=== PATIENT | male | born 1985 | race Caucasian/White ===

== ENCOUNTER 2023-04-28 07:17 | Outpatient (CLI) | payer BC, SELFPAY ==
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
--- OUTSIDE RECORDS SUMMARY | 2023-04-28 07:20 | XMS_ITS | Referral Summary ---
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 Resolved Problems Problem Noted Date Diagnosed Date Resolved Date CARDIOVASCULAR SCREENING; LD L GOAL LESS THAN 160 01/21/2010 04/16/2016 Tobacco use disorder 012 Immunizations Name Administration Dates Next Due HepB 05/16/2000,11/29/1999,10/29/1999 MMR 10/29/1999,05/28/1988 Mantoux Tuberculin Skin Test 03/31/2006 TD,PF 7+ (Tenivac) 10/29/1999 TDAP Vaccine (Boostrix) 09/05/2011 Social History Tobacco Use Types Packs/Day Years Used Date Smoking Tobacco: Former Cigarettes 0.5 1 Smokeless Tobacco: Former Quit: 04/16/2013 Alcohol Use Standard Drinks/Week Comments Yes 3 (1 standard drink = 0.6 oz pur e alcohol) PHQ-2 Answer Date Recorded PHQ-2 Score 0 03/31/2018 Adolescent Education Answer Date Record ed Getting School Help Needed Not on file 12/15 Sex and Gender Information Value Date Recorded Sex Assigned at Not on file Gender Identity Not on file Sexual Orientation Not on file Last Filed Vital Signs Vital Sign Reading Time Taken Comments Blood Pressure 118/72 03/22/2019 4:08 PM NUMERICAL CONTROL DRILL PRESS OPERATOR Pulse 77 03/22/2019 4:08 PM NUMERICAL CONTROL DRILL PRESS OPERATOR Temperature 37.1 ??C (98.8 ??F) 03/22/2019 4:08 PM CS T Respiratory Rate 16 03/22/2019 4:08 PM NUMERICAL CONTROL DRILL PRESS OPERATOR Oxygen Saturation 98% 03/22/2019 4:08 PM NUMERICAL CONTROL DRILL PRESS OPERATOR Inhaled Oxygen Concentration - - Weight 73.5 kg (162 lb) 03/22/2019 4:08 PM NUMERICAL CONTROL DRILL PRESS OPERATOR Height 170.2 cm (5' 7) 03/22/2019 4:08 PM NUMERICAL CONTROL DRILL PRESS OPERATOR Body Mass Index 25.37 03/22/2019 4:08 PM NUMERICAL CONTROL DRILL PRESS OPERATOR Plan of Treatment Not on file
--- OUTSIDE RECORDS SUMMARY | 2023-04-28 07:20 | XMS_ITS | Clinical Summary ---
Author Name Unknown Organization [facility] Address [place], [place] [address] Care Team Providers Care Burglar Alarm Mechanic Name Role Phone Alfred Upton MD Primary Care Provider [phone] Allergies No known active allergies Medications No known medications Social History Tobacco Use Types Packs/Day Years Used Date Smoking Tobacco: Never Assessed Sex and Gender Information Value Date Recorded Sex Assigned at Not on file Gender Identity Not on file Sexual Orientation Not on file Last Filed Vital Signs Vital Sign Reading Time Taken Comments Blood Pressure 119/78 01/29/2018 1:40 PM POWER CLEANER OPERATOR Pulse 78 01/29/2018 1:40 PM POWER CLEANER OPERATOR Temperature 36.5 ??C (97.7 ??F) 01/29/2018 1:40 PM CS T Respiratory Rate 18 01/29/2018 1:40 PM POWER CLEANER OPERATOR Oxygen Saturation 96% 01/29/2018 1:40 PM POWER CLEANER OPERATOR Inhaled Oxygen Concentration - - Weight - - Height - - Body Mass Index - - Plan of Treatment Not on file Care Teams Burglar Alarm Mechanic Relationship Specialty Start Date End Date Alfred Upton MD PCP - General Family Practice 01/29/18
--- OUTSIDE RECORDS SUMMARY | 2023-04-28 07:20 | XMS_ITS | Encounter Summary ---
Author Name Unknown Organization [facility] Address [address] [place] [address] Care Team Providers Care Mechanical Maintenance Name Role Phone Alfred Upton MD Primary Care Provider Akin Chandler MD Primary Care Provider [phone] Maria Victoria Jones RISK CONTROL PRODUCT LIABILITY DIRECTOR Unavailable [phone] Maria Victoria Jones RISK CONTROL PRODUCT LIABILITY DIRECTOR Unavailable [phone] Akin Chandler MD Unavailable [phone] Maria Victoria Jones RISK CONTROL PRODUCT LIABILITY DIRECTOR Unavailable [phone] Encounter Details Date Type Department Care Team (Late st Contact Info) Description 07/01/[address] [phone] Alfred Upton MD [address] [place] [address] [phone] er Social History Tobacco Use Types Packs/Day Years Used Date Smoking Tobacco: Every Day Cigarettes 0.5 1 Alcohol Use Standard Drinks/Week Comments Not Asked 0 (1 standard drink = 0.6 oz pur e alcohol) Sex and Gender Information Value Date Recorded Sex Assigned at Not on file Gender Identity Not on file Sexual Orientation Not on file documented as of this encounter Plan of Treatment Not on file documented as of this encounter Visit Diagnoses Not on filedocumented in this encounter Care Teams Mechanical Maintenance Relationship Specialty Start Date End Date Alfred Upton MD [address] [place] [address] PCP - General 12/09/02 10/08/11 Akin Chandler MD [address] [place] [address] PCP - General Family Practice 10/09/11 01/20/22 Maria Victoria Jones, RISK CONTROL PRODUCT LIABILITY DIRECTOR [facility] [address] [place] [address] PCP - Assigned PCP 08/10/17 05/26/18 Maria Victoria Jones, RISK CONTROL PRODUCT LIABILITY DIRECTOR [facility] [address] [place] [address] Assigned PCP 08/10/17 08/08/18 [place] [address] [facility] [place] [place] [address] Assigned PCP 08/09/18 04/17/19 Maria Victoria Jones, RISK CONTROL PRODUCT LIABILITY DIRECTOR [facility] [address] [place] [address] Assigned PCP 04/18/19 08/16/20 documented as of this encounter
--- OUTSIDE RECORDS SUMMARY | 2023-04-28 07:20 | XMS_ITS | Clinical Summary ---
Author Name Unknown Organization [facility] Address [address] [place] [address] Care Team Providers Care Sensor Operator Name Role Phone Unavailable Primary Care Provider [...] 7+ (Tenivac) 10/29/1999 TDAP Vaccine (Boostrix) 09/05/2011 Family History Medical History Relation Comments Family History Negative Father Hypertension Maternal Grandfather Cerebrovascular Disease Maternal Grandmother Heart Disease Maternal Grandmother CA Gastrointestinal Disease Mother Diverti culitis Hypertension Mother Cancer Paternal Grandfather lung Family History Negative Sister Asthma Son Relation Status Comments Father Alive Maternal Grandfather Alive Maternal Grandmother Alive Mother Alive Paternal Grandfather Paternal Grandmother Alive Sister Alive Son Alive Social History Tobacco Use Types Packs/Day Years [...] Comments Blood Pressure 118/72 03/22/2019 4:08 PM BACK FEEDER [employer]UP LINE Pulse 77 03/22/2019 4:08 PM BACK FEEDER [employer] Temperature 37.1 ??C (98.8 ??F) 03/22/2019 4:08 PM CS T Respiratory Rate 16 03/22/2019 4:08 PM BACK FEEDER [employer] Oxygen Saturation 98% 03/22/2019 4:08 PM BACK FEEDER [employer] Inhaled Oxygen Concentration - - Weight 73.5 kg (162 lb) 03/22/2019 4:08 PM BACK FEEDER [employer] Height 170.2 cm (5' 7) 03/22/2019 4:08 PM BACK FEEDER [employer] Body Mass Index 25.37 03/22/2019 4:08 PM BACK FEEDER [employer] Plan of Treatment Health Maintenance Due Date Last Done Comments ADVANCE CARE PLANNING 1985 ANNUAL REVIEW OF HM ORDERS 1985 HEPATITIS C SCREENING 2004 YEARLY PREVENTIVE VISIT 04/16/2017 04/16/2016, 09/04 GLUCOSE 08/12/2021 08/12/2018, 03/25, 10/10/2011 DTAP/TDAP/TD IMMUNIZATION (6 - Td or Tdap) 09/04/2021 09/05/2011, 10/29/1999, 10/29/1999, Additional history exists COVID-19 Vaccine ( season) 2022 08/11/2020, 07/21/2020 INFLUENZA VACCINE (#1) 2022 PHQ-2 (once per calendar year) 2023 08/06/2017, 05/19/2015 IPV IMMUNIZATION Completed 03/27/1992, 09/1988, 05/16/1987, Additional history exists HEPATITIS B IMMUNIZATION Completed 001, 11/29/1999, 11/29/1999, Additional history exists HIV SCREENING Completed 06/09/2006 HPV IMMUNIZATION Aged Out No longer e ligible based on patient's age to complete this topic MENINGITIS IMMUNIZATION Aged Out No l onger eligible based on patient's age to complete this topic Pneumococcal Vaccine: Pediatrics (0 to 5 Years) and At-Risk Patients (6 to 64 Years) Aged Out No longer eligible based on patient's age to complete this topic RSV MONOCLONAL ANTIBODY Aged Out No l onger eligible based on patient's age to complete this topic
== END 2023-04-28 07:18 | disposition home or self-care (01) ==
LOC: NFLDREF 07:18
PROVIDERS: PCP Family Medicine; Visit Provider Family Medicine
DX: Z13.220 Encounter for screening for lipoid disorders (principal); Z13.228 Encounter for screening for other metabolic disorders
CPT/HCPCS: 80053; 80061

== ENCOUNTER 2023-05-06 15:34 | Outpatient (CLI) | payer BC, SELFPAY | END 2023-05-06 15:35 | disposition home or self-care (01) | PROVIDERS: PCP Family Medicine; Visit Provider Family Medicine | DX: M25.561 Pain in right knee (principal); M25.562 Pain in left knee; G89.29 Other chronic pain | CPT/HCPCS: 86200; 86431; 86618 ==

== ENCOUNTER 2023-10-08 21:26 | Emergency (ER) | payer OTHER, BC, SELFPAY ==
[2023-10-08 21:37] VITALS: BP 141/86; PULSE 106; RESP 18; TEMP 36.2; O2SAT 96; BMI 25.1
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
--- NOTE | 2023-10-08 22:13 | CRLHL7_ITS ---
For Patients: As a result of the Cures Act, medical imaging exams and procedure reports are released immediately into your electronic medical record. You may view this report before your referring provider. If you have questions, please contact your health care provider. INDICATION: Injury and pain. TECHNIQUE: Chest and right ribs 3 views. COMPARISON: None. FINDINGS: Cardiovascular and mediastinum: Heart size and vasculature are normal in caliber and appearance. Mediastinum is within normal limits. Lungs and pleural spaces: Lungs are clear. No sign of infiltrate or mass. No sign of pleural effusion. No pneumothorax. Bones and soft tissues: Detailed oblique images of the right ribs demonstrate no fractures or bone lesions. IMPRESSION: Unremarkable chest and right ribs. Dictated by Star Thakkar MD @ 10/08/2023 11:22:36 PM (Electronically Signed)
--- OUTSIDE RECORDS SUMMARY | 2023-10-08 22:43 | XMS_ITS | Encounter Summary ---
Author Organization [facility] Address [address] [place] [address] Care Team Providers Care Tourist Guide Name Role Phone Alfred Upton MD Primary Care Provider [phone] Akin Chandler MD Primary Care Provider Maria Victoria Jones TALENT MANAGER Unavailable [phone] Maria Victoria Jones TALENT MANAGER Unavailable [phone] Akin Chandler MD Unavailable [phone] Maria Victoria Jones TALENT MANAGER Unavailable [phone] Encounter Details Date Type Department Care Team (Late st Contact Info) Description [address] [id number] Alfred Upton MD [address] [place] [id number] Social History Tobacco Use Types Packs/Day Years [...] encounter Progress Notes * 2002 11:59 PM [id number] 00:00 Emergency Department Encounter-DARSHAN MONDRAGON) [Entered: 2002 00:00 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 The child was placed on cardiac mo nitor and continuous oximetry. He received 100 mcg of Fentanyl which is just less than 2 mcg of Fent anyl per kg IV. With respiratory therapy, the nurse, the ED audio video technician in the room, the child was [...] Stable. [id number] DARSHAN SMITH MD [place]: Document: [id number] [place], [place] Name: MITCH CAMARILLO EMERGENCY ROOM ENCOUNTER Page 3 of 2 L CN: ANETA DSC: 2002 [place], [place] Name: MR#: : Admit Date: MITCH CAMARILLO -97 1985 2002 Doctor: DARSHAN FRANCIS MD EMERGENCY ROOM ENCOUNTER Page 1 of 2 Electronically filed by Sydnie Snyder 12/09/2002 12:03 PM documented in this encounter Plan of Treatment Not on file documented as of this encounter Visit Diagnoses Not on filedocumented in this encounter Care Teams Tourist Guide Relationship Specialty Start Date End Date Alfred Upton MD [address] [place] [address] PCP - General 12/09/02 10/08/11 Akin Chandler MD [address] [place] [address] PCP - General Family Practice 10/09/11 01/20/22 Maria Victoria Jones, TALENT MANAGER [facility] [address] [place] [address] PCP - Assigned PCP 08/10/17 05/26/18 Maria Victoria Jones, TALENT MANAGER [facility] [address] [place] [address] Assigned PCP 08/10/17 08/08/18 [place] [address] [address] [place] [address] Assigned PCP 08/09/18 04/17/19 Maria Victoria Jones, TALENT MANAGER [facility] [address] [place] [address] Assigned PCP 04/18/19 08/16/20 documented as of this encounter
--- OUTSIDE RECORDS SUMMARY | 2023-10-08 22:43 | XMS_ITS | Referral Summary ---
Author Organization [facility] Address [address] [place] [address] Care Team Providers Care Blood Bank Assistant Name Role Phone Unavailable Primary Care Provider [...] Comments Blood Pressure 118/72 03/22/2019 4:08 PM THERMODYNAMIC PHYSICIST Pulse 77 03/22/2019 4:08 PM THERMODYNAMIC PHYSICIST Temperature 37.1 ??C (98.8 ??F) 03/22/2019 4:08 PM CS T Respiratory Rate 16 03/22/2019 4:08 PM THERMODYNAMIC PHYSICIST Oxygen Saturation 98% 03/22/2019 4:08 PM THERMODYNAMIC PHYSICIST Inhaled Oxygen Concentration - - Weight 73.5 kg (162 lb) 03/22/2019 4:08 PM THERMODYNAMIC PHYSICIST Height 170.2 cm (5' 7) 03/22/2019 4:08 PM THERMODYNAMIC PHYSICIST Body Mass Index 25.37 03/22/2019 4:08 PM THERMODYNAMIC PHYSICIST Plan of Treatment Not on file Procedures Procedure Name Priority Date/Time Associated Diagnosis Comments COMPREHENSIVE METABOLIC PANEL Routine 08/12/2018 5:32 PM CDT Muscle spasms of neck Chest pain, unspecified type HCL HIV 1 & 2 ANTIBODY Routine 7 4:43 PM CDT Screening For Veneral Dis from Last 3 Months or Most Recently Relevant to Health Maintenance Results * Comprehensive metabolic panel (08/12/2018 5:32 PM CDT) Sodium 137 133 - 144 mmol/L 08/13/2018 1:20 PM CDT [facility] Potassium 4.5 3.4 - 5.3 mmol/L 08/13/2018 1:20 PM CDT [facility] Chloride 106 94 - 109 mmol/L 08/13/2018 1:20 PM CDT [facility] Carbon Dioxide 28 20 - 32 mmol/L 08/13/2018 1:36 PM CDT [facility] Anion Gap 3 3 - 14 mmol/L 08/13/2018 1:36 PM CDT [facility] Glucose 89 70 - 99 mg/dL 08/13/2018 1:36 PM CDT [facility] Urea Nitrogen 14 7 - 30 mg/dL 08/13/2018 1:36 PM CDT [facility] Creatinine 0.92 0.66 - 1.25 mg/dL 08/13/2018 1:36 PM CDT [facility] GFR Estimate >90 >60 mL/min/{1 .73_m2} 08/13/2018 1:36 PM CDT [facility] Comment: Non GFR Calc Starting 03/10/2018, serum creatinine based estimated GFR (eGFR) will be calculated using the Chronic Kidney Disease Epidemiology Collaboration (CKD-EPI) equation. GFR Estimate If Black >90 >60 mL/min/{1 .73_m2} 08/13/2018 1:36 PM CDT [facility] Comment: GFR Calc Starting 03/10/2018, serum creatinine based estimated GFR (eGFR) will be calculated using the Chronic Kidney Disease Epidemiology Collaboration (CKD-EPI) equation. Calcium 9.6 8.5 - 10.1 mg/dL 08/13/2018 1:36 PM CDT [facility] Bilirubin Total 0.4 0.2 - 1.3 mg/dL 08/13/2018 1:51 PM CDT [facility] Albumin 4.2 3.4 - 5.0 g/dL 08/13/2018 1:51 PM CDT [facility] Protein Total 7.1 6.8 - 8.8 g/dL 08/13/2018 1:51 PM CDT [facility] Alkaline Phosphatase 70 40 - 150 U/L 08/13/2018 1:51 PM CDT [facility] ALT 37 0 - 70 U/L 08/13/2018 1:51 PM CDT [facility] AST 17 0 - 45 U/L 08/13/2018 1:51 PM CDT [facility] Blood specimen (specimen) 08/12/2018 5:32 PM CDT 08/12/2018 5:33 PM CDT Maribell Ghosh MD LAB - BLOOD ORDERABLES [facility] [address] [place] [address] * HIV 1 & 2, SCREEN (06/09/2006 4:43 PM CDT) HIV 1&2 Antibody Negative [facility]G [facility] 06/09/2006 4:43 PM CDT 06/09/2006 4:44 PM CDT Alfred Upton MD LABORATORY [facility] from Last 3 Months or Most Recently Relevant to Health Maintenance
--- OUTSIDE RECORDS SUMMARY | 2023-10-08 22:43 | XMS_ITS | Encounter Summary ---
Author Organization [facility] Address [address] [place] [address] Care Team Providers Care Rn Supplemental Name Role Phone Alfred Upton MD Primary Care Provider Akin Chandler MD Primary Care Provider [phone] Maria Victoria Jones NURSE CASE MANAGEMENT Unavailable [phone] Maria Victoria Jones NURSE CASE MANAGEMENT Unavailable [phone] Akin Chandler MD Unavailable [phone] Maria Victoria Jones NURSE CASE MANAGEMENT Unavailable [phone] Encounter Details Date Type Department Care Team (Late st Contact Info) Description 07/01/[address] [phone] Alfred Upton MD [address] [place] [phone] er Social History Tobacco Use Types Packs/Day [...] on filedocumented in this encounter Care Teams Rn Supplemental Relationship Specialty Start Date End Date Alfred Upton MD [address] [place] [address] PCP - General 12/09/02 10/08/11 [place] [address] [place] [address] PCP - General Family Practice 10/09/11 01/20/22 Maria Victoria Jones, NURSE CASE MANAGEMENT [facility] [address] [place] [address] PCP - Assigned PCP 08/10/17 05/26/18 Maria Victoria Jones, NURSE CASE MANAGEMENT [facility] [address] [place] [address] Assigned PCP 08/10/17 08/08/18 [place] [address] [facility] [place] [address] Assigned PCP 08/09/18 04/17/19 Maria Victoria Jones, NURSE CASE MANAGEMENT [facility] [address] [place] [address] Assigned PCP 04/18/19 08/16/20 documented as of this encounter
--- OUTSIDE RECORDS SUMMARY | 2023-10-08 22:43 | XMS_ITS | Clinical Summary ---
Author Organization [facility] Address [address] [place] [address] Care Team Providers Care Prawn Trawler Hand Name Role Phone Unavailable Primary Care Provider [...] Disease Maternal Grandmother Heart Disease Maternal Grandmother [place] Gastrointestinal Disease Mother Diverti culitis Hypertension Mother [...] Comments Blood Pressure 118/72 03/22/2019 4:08 PM CONFIGURATION ANALYST Pulse 77 03/22/2019 4:08 PM CONFIGURATION ANALYST Temperature 37.1 ??C (98.8 ??F) 03/22/2019 4:08 PM CS T Respiratory Rate 16 03/22/2019 4:08 PM CONFIGURATION ANALYST Oxygen Saturation 98% 03/22/2019 4:08 PM CONFIGURATION ANALYST Inhaled Oxygen Concentration - - Weight 73.5 kg (162 lb) 03/22/2019 4:08 PM CONFIGURATION ANALYST Height 170.2 cm (5' 7) 03/22/2019 4:08 PM CONFIGURATION ANALYST Body Mass Index 25.37 03/22/2019 4:08 PM CONFIGURATION ANALYST Plan of Treatment Health Maintenance Due Date Last Done Comments ADVANCE CARE PLANNING 1985 ANNUAL REVIEW OF HM ORDERS 1985 HEPATITIS C SCREENING 2004 YEARLY PREVENTIVE VISIT 04/16/2017 04/16/2016, 09/04 GLUCOSE 08/12/2021 08/12/2018, 03/25, 10/10/2011 DTAP/TDAP/TD IMMUNIZATION (6 - Td or Tdap) 09/04/2021 09/05/2011, 10/29/1999, 10/29/1999, Additional history exists COVID-19 Vaccine ( season) 2022 08/11/2020, 07/21/2020 PHQ-2 (once per calendar year) 2023 08/06/2017, 05/19/2015 INFLUENZA VACCINE (Season Ended) 2023 IPV IMMUNIZATION Completed 03/27/1992, 09/1988, 05/16/1987, Additional [...] on patient's age to complete this topic Procedures Procedure Name Priority Date/Time Associated Diagnosis [...] - 144 mmol/L 08/13/2018 1:20 PM CDT [facility] Potassium 4.5 3.4 - 5.3 mmol/L 08/13/2018 1:20 PM CDT [facility] Chloride 106 94 - 109 mmol/L 08/13/2018 1:20 PM CDT [facility] Carbon Dioxide 28 20 - 32 mmol/L 08/13/2018 1:36 PM CDT [facility] Anion Gap 3 3 - 14 mmol/L 08/13/2018 1:36 PM CDT [facility] Glucose 89 70 - 99 mg/dL 08/13/2018 1:36 PM CDT [facility] Urea Nitrogen 14 7 - 30 mg/dL 08/13/2018 1:36 PM CDT [facility] Creatinine 0.92 0.66 - 1.25 mg/dL 08/13/2018 1:36 PM CDT [facility] GFR Estimate >90 >60 mL/min/{1 .73_m2} 08/13/2018 1:36 PM CDT [facility] Comment: Non GFR Calc Starting 03/10/2018, serum creatinine based estimated GFR (eGFR) will be calculated using the Chronic Kidney Disease Epidemiology Collaboration (CKD-EPI) equation. GFR Estimate If Black >90 >60 mL/min/{1 .73_m2} 08/13/2018 1:36 PM CDT [facility] Comment: GFR Calc Starting 03/10/2018, serum creatinine based estimated GFR (eGFR) will be calculated using the Chronic Kidney Disease Epidemiology Collaboration (CKD-EPI) equation. Calcium 9.6 8.5 - 10.1 mg/dL 08/13/2018 1:36 PM CDT [facility] Bilirubin Total 0.4 0.2 - 1.3 mg/dL 08/13/2018 1:51 PM CDT [facility] Albumin 4.2 3.4 - 5.0 g/dL 08/13/2018 1:51 PM CDT [facility] Protein Total 7.1 6.8 - 8.8 g/dL 08/13/2018 1:51 PM CDT [facility] Alkaline Phosphatase 70 40 - 150 U/L 08/13/2018 1:51 PM CDT [facility] ALT 37 0 - 70 U/L 08/13/2018 1:51 PM CDT [facility] AST 17 0 - 45 U/L 08/13/2018 1:51 PM CDT [facility] Blood specimen (specimen) 08/12/2018 5:32 PM CDT 08/12/2018 5:33 PM CDT Maribell Ghosh MD LAB - BLOOD ORDERABLES [facility] [address] [place] [address] * HIV 1 & 2, SCREEN (06/09/2006 4:43 PM CDT) HIV 1&2 Antibody Negative NEG [facility] 06/09/2006 4:43 PM CDT 06/09/2006 4:44 PM CDT Alfred Upton MD LABORATORY [facility] from Last 3 Months or Most Recently Relevant to Health Maintenance
--- OUTSIDE RECORDS SUMMARY | 2023-10-08 22:43 | XMS_ITS | Clinical Summary ---
Author Organization [facility] Address [place], [place] [address] Care Team Providers Care Marine Insurance Claim Examiner Name Role Phone Alfred Upton MD Primary Care Provider [phone] Allergies No known active allergies Medications No known medications Social History Tobacco Use Types Packs/Day Years Used Date Smoking Tobacco: Never Assessed Sex and Gender Information Value Date Recorded Sex Assigned at Not on file Gender Identity Not on file Sexual Orientation Not on file Last Filed Vital Signs Vital Sign Reading Time Taken Comments Blood Pressure 119/78 01/29/2018 1:40 PM QUALITY ASSURANCE LEAD Pulse 78 01/29/2018 1:40 PM QUALITY ASSURANCE LEAD Temperature 36.5 ??C (97.7 ??F) 01/29/2018 1:40 PM CS T Respiratory Rate 18 01/29/2018 1:40 PM QUALITY ASSURANCE LEAD Oxygen Saturation 96% 01/29/2018 1:40 PM QUALITY ASSURANCE LEAD Inhaled Oxygen Concentration - - Weight - - Height - - Body Mass Index - - Plan of Treatment Not on file Care Teams Marine Insurance Claim Examiner Relationship Specialty Start Date End Date Alfred Upton MD PCP - General Family Practice 01/29/18
== END 2023-10-08 23:28 | disposition home or self-care (01) ==
PROVIDERS: Emergency Provider Family Medicine; PCP Family Medicine
DX: S46.911A Strain of unspecified muscle, fascia and tendon at shoulder and upper arm level, right arm, initial encounter (principal); S20.211A Contusion of right front wall of thorax, initial encounter; V49.40XA Driver injured in collision with unspecified motor vehicles in traffic accident, initial encounter
CPT/HCPCS: 71101; 99283; 99284